=== PATIENT | female | born 1995 | race Two or more races ===

== ENCOUNTER → 2020-02-28 | Outpatient (CLI) | payer OTHER ==
[~2020-02-28] MED LIST: PRENATAL FORMU1 EAC1 PO; PRENATAL TABLET1 TA1 PO
== END | disposition home or self-care (01) ==
LOC: PRENATAL 14:38
DX: O35.3XX0 Maternal care for (suspected) damage to fetus from viral disease in mother, not applicable or unspecified (principal); O99.89 Other specified diseases and conditions complicating pregnancy, childbirth and the puerperium; Z36.89 Encounter for other specified antenatal screening

== ENCOUNTER → 2020-04-18 | Outpatient (CLI) | payer OTHER | END | disposition home or self-care (01) | LOC: PRENATAL 15:00 | PROVIDERS: ATTEND Obstetrics & Gynecology | DX: O26.843 Uterine size-date discrepancy, third trimester (principal) ==

== ENCOUNTER 2020-06-18 13:00 | Inpatient (IN) | payer OTHER ==
[~2020-06-18] VITALS: Ht 162.6 cm; Wt 81.6 kg
[2020-06-24] MEDS ORDERED: PRENATAL + DHA1 EAC1 PO (09:10)
== END 2020-06-25 14:49 | DRG 807 ==
LOC: ADM 13:00 → EDSTATUS 13:00 → ADM 13:30 → LDR 06-23 07:24 → OB/GYN 06-23 07:24 → SURH 06-29 13:00
PROVIDERS: ADMIT Obstetrics & Gynecology; ATTEND Obstetrics & Gynecology
PROC: 10E0XZZ Delivery of Products of Conception, External Approach (ICD-10-PCS; principal; 2020-06-23)
PROC: 3E033VJ Introduction of Other Hormone into Peripheral Vein, Percutaneous Approach (ICD-10-PCS; 2020-06-23)
PROC: 0HQ9XZZ Repair Perineum Skin, External Approach (ICD-10-PCS; 2020-06-23)
PROC: 4A0HXFZ Measurement of Products of Conception, Cardiac Rhythm, External Approach (ICD-10-PCS; 2020-06-23)
DX: O70.0 First degree perineal laceration during delivery (principal); Z37.0 Single live birth; Z3A.39 39 weeks gestation of pregnancy